=== PATIENT | female | born 1955 | race Caucasian/White ===

== ENCOUNTER 2018-05-08 10:14 | Emergency (ER) | payer MEDICARE ==
[~2018-05-08] VITALS: Ht 162.6 cm; Wt 99.8 kg
[2018-05-08 10:15] VITALS: BP_SYST 160
[2018-05-08 10:50] VITALS: BP_SYST 160
== END 2018-05-08 10:40 ==
LOC: SED 10:14
DX: Z02.89 Encounter for other administrative examinations (principal); I10 Essential (primary) hypertension; E78.00 Pure hypercholesterolemia, unspecified
CPT/HCPCS: 99283